=== PATIENT | female | born 1985 | race Caucasian/White ===

== ENCOUNTER 2016-11-05 16:36 | Emergency (ER) | payer OTHER ==
[2016-11-05 17:03] VITALS: BP 131/70; PULSE 72; RESP 18; TEMP 98.8
[2016-11-05] MEDS ORDERED: ACETAMINOPHEN TAB 325 MG TAB PO STA (17:37)
--- NOTE | 2016-11-05 17:53 | ED ---
Back Pain HPI - General Chief Complaint: Back Pain/Injury Stated Complaint: Back and hip pain Source: patient Limitations: no limitations - History of Present Illness Initial Comments: Patient is a 31 -year-old female with a medical history significant for degenerative disc disease and chronic low back pain presenting to the emergency department with chief complaint of low back pain and left hip pain. Patient states she was in her usual state of health when she woke up this morning developed back pain and left hip pain after she took a shower. Patient denies any injury or trauma. Patient describes pain as sharp, radiated 8 out of 10, exacerbated with movement, relieved with rest. Patient is 5 weeks and denies any treatment prior to arrival. No history of fevers, chills, nausea, vomiting, shortness of breath, chest pain, abdominal pain, vaginal bleeding, numbness or tingling. No urinary incontinence or fecal incontinence. No saddle anesthesia. - Related Data Home Medications Medication Instructions Recorded Confirmed No Known Home Medications [No 11/05/16 11/05/16 Known Home Medications] Allergies Allergy/AdvReac Type Severity Reaction Status Date / Time amoxicillin [Amoxicillin] Allergy Anaphylaxis Verified 11/05/16 17:12 cefaclor [From Ceclor] Allergy Anaphylaxis Verified 11/05/16 17:12 sulfamethoxazole Allergy Rash/Hives Verified 11/05/16 17:12 [From Bactrim] trimethoprim [From Bactrim] Allergy Rash/Hives Verified 11/05/16 17:12 Review of Systems ROS Statement: Those systems with pertinent positive or pertinent negative responses have been documented in the HPI. ROS Other: All systems not noted in ROS Statement are negative. Past Medical History Past Medical History: Asthma History of Any Multi-Drug Resistant Organisms: None Reported Past Surgical History: Tonsillectomy Past Psychological History: No Psychological Hx Reported, Anxiety Smoking Status: Current every day smoker Past Alcohol Use History: None Reported Past Drug Use History: None Reported General Exam Limitations: no limitations General appearance: alert, in no apparent distress Head exam: Present: atraumatic, normocephalic, normal inspection Eye exam: Present: normal appearance ENT exam: Present: normal exam, mucous membranes moist, normal external ear exam Neck exam: Present: normal inspection, full ROM. Absent: tenderness, meningismus, lymphadenopathy Respiratory exam: Present: normal lung sounds bilaterally. Absent: respiratory distress, wheezes, rales, rhonchi, stridor Cardiovascular Exam: Present: regular rate, normal rhythm, normal heart sounds. Absent: systolic murmur, diastolic murmur, rubs, gallop, clicks GI/Abdominal exam: Present: soft, rigid, normal bowel sounds. Absent: distended , tenderness, guarding, rebound Extremities exam: Present: normal inspection, full ROM Back exam: Present: full ROM, tenderness, paraspinal tenderness (Paraspinal tenderness over left lumbosacral region.), vertebral tenderness (Vertebral tenderness to lumbar region). Absent: muscle spasm Expanded Back exam: Absent: saddle anesthesia Back exam: Sciatic Notch Tenderness: Left Neurological exam: Present: alert, oriented X3, normal gait, other (No focal deficits noted) Psychiatric exam: Present: normal affect, normal mood Skin exam: Present: warm, dry, intact, normal color Course Vital Signs 11/05/16 16:59 Temperature 98.8 F Pulse Rate 72 Respiratory 18 Rate Blood Pressure 131/70 O2 Sat by Pulse 98 Oximetry Medical Decision Making - Medical Decision Making Acute on chronic back pain. No red flags present. No imaging performed secondary to patient being 5 weeks . Patient instructed to continue Tylenol as needed along with conservative measures for pain. Patient instructed to establish a primary care physician and follow-up. Patient instructed to follow-up with orthopedic services as needed for continued back pain. Patient agrees with treatment plan. Discharge instructions and return parameters reviewed. Disposition Clinical Impression: Acute exacerbation of chronic low back pain Disposition: HOME SELF-CARE Condition: Good Instructions: Acute Low Back Pain (ED), Chronic Back Pain (ED) Additional Instructions: Continue Tylenol for pain every 6 hours as needed. Apply ice or heat to back as needed for comfort. Establish primary care physician for follow-up. May consider follow-up with orthopedic service if symptoms do not improve. Please return to the emergency department if symptoms do not improve or get worse. Referrals: None,Stated [Primary Care Provider] - 1-2 days Jose Maria Benz MD [Medical Doctor] - 1-2 days Time of Disposition: 17:52
== END 2016-11-05 18:03 | disposition home or self-care (01) ==
LOC: EC 16:36
DX: O99.89 Other specified diseases and conditions complicating pregnancy, childbirth and the puerperium (principal); O99.331 Smoking (tobacco) complicating pregnancy, first trimester; G89.29 Other chronic pain; M54.5 Low back pain; M25.552 Pain in left hip; F17.200 Nicotine dependence, unspecified, uncomplicated; Z3A.01 Less than 8 weeks gestation of pregnancy; Z88.0 Allergy status to penicillin; Z88.1 Allergy status to other antibiotic agents; Z88.2 Allergy status to sulfonamides
CPT/HCPCS: 99283

== ENCOUNTER → 2016-12-31 | Outpatient (CLI) | payer OTHER ==
--- NOTE | 2016-12-31 12:50 | US ---
EXAMINATION TYPE: US OB <= 14 wk fetus DATE OF EXAM: 12/31/2016 COMPARISON: NONE CLINICAL HISTORY: Z36 Confirm dates. EXAM PERFORMED: Transabdominal (TA) EXAM MEASUREMENTS: GESTATIONAL AGE / DATING Physician Established: not yet established Dates by LMP: (12 weeks/5 days) EDC: 07/10/17 Dates by First Scan: 1st scan today Dates by Current Scan for: (12 weeks/3 days) EDC: 07/12/17 MATERNAL ANATOMY Uterus: 13.1 x 8.5 x 9.6cm Right Ovary: 4.4 x 2.7 x 3.2cm Left Ovary: 3.5 x 3.0 x 3.0cm Post CDS / Adnexa: wnl Presence of free fluid: no GESTATION / SURVEY CRL: 5.9cm (12 weeks/3 days) Yolk Sac (normal less than 6mm): not visualized Heart Rate: 170 bpm Rhythm: Normal IUP: Viable IUP Date of LMP: 10/03/16 Beta HcG (if available): not available Morbidly obese patient, technically difficult study. IMPRESSION: Single live intrauterine with a sonographic gestational age of 12 weeks and 3 days and yesica mated date of delivery of 07/12/2017. Dates are concordant with the menstrual age.
== END | disposition home or self-care (01) ==
LOC: RADUSWWP 12:03
PROVIDERS: ATTEND Obstetrics & Gynecology
DX: O99.211 Obesity complicating pregnancy, first trimester (principal); E66.01 Morbid (severe) obesity due to excess calories; R93.9 Diagnostic imaging inconclusive due to excess body fat of patient; Z3A.12 12 weeks gestation of pregnancy
CPT/HCPCS: 76801

== ENCOUNTER → 2017-02-23 | Outpatient (CLI) | payer OTHER ==
[2017-02-23 12:32] LABS: CH 33.2; CHCM 32.5; HCT 35.4 % (34.0-46.0); HDW 2.39; HGB 11.6 gm/dL (11.4-16.0); MCH 33.7 pg (25.0-35.0); MCHC 32.8 g/dL (31.0-37.0); MCV 102.6 fL (80.0-100.0); Macrocytosis Slight; RBC 3.45 m/uL (3.80-5.40); RDW 13.5 % (11.5-15.5)
[2017-02-23 12:41] LABS: Non-African American GFR(MDRD) >60 (>60 ml/min/1.73 sqM)
[2017-02-23 19:07] LABS: Treponemal Ab Non-Reactive (Non-Reactive)
[2017-02-24 06:32] LABS: Toxoplasma Antibody (IgG) <3.0 IU/mL (<7.2)
== END | disposition home or self-care (01) ==
LOC: LABWHC1 10:55
PROVIDERS: ATTEND Obstetrics & Gynecology
DX: O26.812 Pregnancy related exhaustion and fatigue, second trimester (principal); Z3A.00 Weeks of gestation of pregnancy not specified
CPT/HCPCS: 36415; 82565; 82950; 85027; 86762; 86777; 86778; 86780; 86850; 86900; 86901; 87340; 87390

== ENCOUNTER 2017-07-10 14:35 | Emergency (ER) | payer OTHER ==
--- NOTE | 2017-07-10 15:58 | XR ---
EXAMINATION TYPE: XR chest 2V DATE OF EXAM: 07/10/2017 COMPARISON: NONE HISTORY: Cough and congestion TECHNIQUE: Frontal and lateral views of the chest are obtained. FINDINGS: There is no focal air space opacity, pleural effusion, or pneumothorax seen. The cardiac silhouette size is within normal limits. The osseous structures are intact. IMPRESSION: No acute cardiopulmonary process.
--- NOTE | 2017-07-10 16:01 | ED ---
General Adult HPI - General Chief complaint: Upper Respiratory Infection Stated complaint: cough Time Seen by Provider: 07/10/17 15:19 Source: patient, RN notes reviewed Mode of arrival: ambulatory Limitations: no limitations - History of Present Illness Initial comments: 32 yo female presents to the ER with cc of cough and fever. Her child was recently diagnosed with influenza B and now she's developed a fever and cough. She states that she has not had any nausea vomiting. She's been able to eat and drink well. She was concerned due to the continued cough as well as a high fever so she thought that she should be seen. Patient denies any other symptoms at this time. She is a smoker. Denies any other health history. Patient denies any recent shortness of breath, chest pain, back pain, abdominal pain, nausea vomiting, numbness or tingling, dysuria or hematuria, constipation or diarrhea, headaches or visual changes, or any other current symptoms. - Related Data Home Medications Medication Instructions Recorded Confirmed Pnv No.95/Ferrous Fum/Folic AC 1 tab PO DAILY 06/15/17 07/10/17 [ Multivitamin Tablet] Acetaminophen [Tylenol Extra 1,000 mg PO Q6H PRN 07/10/17 07/10/17 Strength] Allergies Allergy/AdvReac Type Severity Reaction Status Date / Time amoxicillin [Amoxicillin] Allergy Anaphylaxis Verified 07/10/17 15:26 cefaclor [From Ceclor] Allergy Anaphylaxis Verified 07/10/17 15:26 sulfamethoxazole Allergy Rash/Hives Verified 07/10/17 15:26 [From Bactrim] trimethoprim [From Bactrim] Allergy Rash/Hives Verified 07/10/17 15:26 Review of Systems ROS Statement: Those systems with pertinent positive or pertinent negative responses have been documented in the HPI. ROS Other: All systems not noted in ROS Statement are negative. Past Medical History Past Medical History: Asthma Additional Past Medical History / Comment(s): OB history: First was a vaginal delivery at 35 weeks due to PROM, 6#2oz. This is her second and She has had care with me since 11 weeks. A+, abs neg, Rub Imm, Treponemal ab neg, Hep B neg, HIV NR. normal 1hr. Baby does have a 2 vessel cord and has been followed with growth USs and NSts. GBS neg. History of Any Multi-Drug Resistant Organisms: None Reported Past Surgical History: Tonsillectomy Past Anesthesia/Blood Transfusion Reactions: No Reported Reaction Past Psychological History: No Psychological Hx Reported, Anxiety Smoking Status: Current every day smoker Past Alcohol Use History: None Reported Past Drug Use History: None Reported - Past Family History Father Family Medical History: No Reported History General Exam - General Exam Comments Initial Comments: General exam: Alert, active, comfortable in no apparent distress Head: Normocephalic Eyes: Normal reaction of pupils, equal size, normal range of extraocular motion Ears: normal external ear canals, pink tympanic membranes with normal cone of light Nose: clear with pink turbinates Throat: no erythema or exudates with normal sized tonsils Neck: no masses, no nuchal rigidity Chest: no chest wall deformity Lungs: equal air entry with no crackles or wheeze CVS: S1 and S2 normal with no audible mumurs, regular rhythm Abdomen: no hepatosplenomegaly, normal bowel sounds, no guarding or rigidity Spine: no scoliosis or deformity Skin: no rashes Neurological: No focal deficits, tone is normal in all 4 extremities Limitations: no limitations Course Vital Signs 07/10/17 07/10/17 14:46 16:58 Temperature 98.0 F 98.1 F Pulse Rate 72 55 L Respiratory 17 18 Rate Blood Pressure 146/70 155/75 O2 Sat by Pulse 98 97 Oximetry Medical Decision Making - Medical Decision Making 32-year-old female presents for cough and fever. At this time patient is positive for influenza B. She is out of the window for treatment. At this time we will discharge the patient home. We discussed continuing Motrin Tylenol for fever. We discussed return parameters and follow-up and all questions. Patient family stated the [place] management this plan. All questions have been answered. They will be discharged at this time. - Lab Data Lab Results 07/10/17 Range/Units 15:30 Influenza Type A RNA Not Detected (Not Detectd) Influenza Type B (PCR) Detected H (Not Detectd) - Radiology Data Radiology results: report reviewed, image reviewed Disposition Clinical Impression: Influenza B Disposition: HOME SELF-CARE Condition: Stable Instructions: Influenza (ED) Additional Instructions: Please use medication as discussed. Please follow up with family doctor if symptoms have not improved over the next two days. Please return to the emergency room if your symptoms increase or worsen or for any other concerns. Referrals: Nohemi Lennon MD [REFERRING] - 1-2 days Time of Disposition: 17:16
[2017-07-10 16:59] VITALS: BP 155/75; PULSE 55; RESP 18; TEMP 98.1
== END 2017-07-10 17:36 | disposition home or self-care (01) ==
LOC: EC 14:35
DX: O99.53 Diseases of the respiratory system complicating the puerperium (principal); J10.1 Influenza due to other identified influenza virus with other respiratory manifestations; O99.335 Smoking (tobacco) complicating the puerperium; F17.200 Nicotine dependence, unspecified, uncomplicated; Z90.89 Acquired absence of other organs; Z88.0 Allergy status to penicillin; Z88.1 Allergy status to other antibiotic agents; Z79.899 Other long term (current) drug therapy
CPT/HCPCS: 71046; 87502; 99283

== ENCOUNTER → 2017-08-17 | Outpatient (CLI) | payer OTHER ==
[2017-08-17 15:08] LABS: Basophils % (A) 0 %; Eosinophils # (A) 0.2 k/uL (0-0.7); Eosinophils % (A) 2 %; HCT 38.8 % (34.0-46.0); HGB 12.6 gm/dL (11.4-16.0); Lymphocytes # (A) 2.3 k/uL (1.0-4.8); Lymphocytes % (A) 31 %; MCH 29.8 pg (25.0-35.0); MCHC 32.4 g/dL (31.0-37.0); Monocytes # (A) 0.3 k/uL (0-1.0); Monocytes % (A) 3 %; Neutrophils # (A) 4.7 k/uL (1.3-7.7); Neutrophils % (A) 62 %; Platelet Count 236 k/uL (150-450); RBC 4.22 m/uL (3.80-5.40); RDW 13.4 % (11.5-15.5); WBC 7.6 k/uL (3.8-10.6)
== END | disposition home or self-care (01) ==
LOC: LABPAT 14:40
PROVIDERS: ATTEND Obstetrics & Gynecology
DX: Z01.812 Encounter for preprocedural laboratory examination (principal)
CPT/HCPCS: 36415; 85025

== ENCOUNTER → 2017-10-21 | Outpatient (CLI) | payer OTHER ==
[2017-10-21 13:33] LABS: Basophils % (A) 0 %; Eosinophils # (A) 0.2 k/uL (0-0.7); Eosinophils % (A) 2 %; HCT 38.5 % (34.0-46.0); HGB 12.6 gm/dL (11.4-16.0); Lymphocytes % (A) 30 %; MCH 28.7 pg (25.0-35.0); MCHC 32.8 g/dL (31.0-37.0); MCV 87.4 fL (80.0-100.0); Mean Platelet Volume 6.7; Monocytes # (A) 0.3 k/uL (0-1.0); Monocytes % (A) 4 %; Neutrophils # (A) 4.3 k/uL (1.3-7.7); Neutrophils % (A) 63 %; Platelet Count 193 k/uL (150-450); RDW 14.7 % (11.5-15.5); WBC 6.8 k/uL (3.8-10.6)
== END | disposition home or self-care (01) ==
LOC: LABPAT 12:56
PROVIDERS: ATTEND Obstetrics & Gynecology
DX: Z01.812 Encounter for preprocedural laboratory examination (principal)
CPT/HCPCS: 36415; 85025

== ENCOUNTER 2017-10-28 05:57 | Day surgery (SDC) | payer OTHER ==
[2017-10-24 15:08] VITALS: BMI 48.0
[~2017-10-28 05:57] MED LIST: DEXAMETHASONE SOD PHOSPHATE 10 MG/ML 1 ML VIAL IV ONE; LACTATED RINGERS 1,000 ML IV SCH; MIDAZOLAM 2 MG/2 ML VIAL IV PRN; ONDANSETRON 4 MG/2 ML VIAL IVP ONE; Pre Op ABX Message 1 EACH MISC MISCELLANE ONE; SCOPOLAMINE 1.5MG/72HR PATCH TRANSDERM ONE; fentaNYL (PF) 50 MCG/ML 2 ML AMP IV PRN
--- NOTE | 2017-10-28 06:33 | P.HPOB ---
History of Present Illness H&P Date: 10/28/17 Chief Complaint: Family planning 32-year-old presents for laparoscopic tubal ligation. Review of Systems All systems: negative Constitutional: Denies chills, Denies fever Eyes: denies blurred vision, denies pain Ears, nose, mouth and throat: Denies headache, Denies sore throat Cardiovascular: Denies chest pain, Denies shortness of breath Respiratory: Denies cough Gastrointestinal: Denies abdominal pain, Denies diarrhea, Denies nausea, Denies vomiting Genitourinary: Denies dysuria, Denies hematuria Musculoskeletal: Denies myalgias Integumentary: Denies pruritus, Denies rash Neurological: Denies numbness, Denies weakness Psychiatric: Denies anxiety, Denies depression Endocrine: Denies fatigue, Denies weight change Past Medical History Past Medical History: Asthma Additional Past Medical History / Comment(s): ASTHMA (NO MEDS SINCE 18 YRS OLD) , VARICOSE VEINS, SCIATIC NERVE PAIN. History of Any Multi-Drug Resistant Organisms: None Reported Past Surgical History: Tonsillectomy Past Anesthesia/Blood Transfusion Reactions: No Reported Reaction, Motion Sickness Past Psychological History: Anxiety Smoking Status: Current every day smoker Past Alcohol Use History: None Reported Additional Past Alcohol Use History / Comment(s): STARTED SMOKING AGE 19., SMOKES 1/2 PPD. Past Drug Use History: None Reported - Past Family History Father Family Medical History: No Reported History Medications and Allergies Home Medications Medication Instructions Recorded Confirmed Type Ibuprofen 800 mg PO TID PRN 10/24/17 10/24/17 History Allergies Allergy/AdvReac Type Severity Reaction Status Date / Time amoxicillin [Amoxicillin] Allergy Anaphylaxis Verified 10/24/17 14:49 cefaclor [From Ceclor] Allergy Anaphylaxis Verified 10/24/17 14:49 latex Allergy Rash/Hives Verified 10/24/17 14:49 sulfamethoxazole Allergy Rash/Hives Verified 10/24/17 14:49 [From Bactrim] trimethoprim [From Bactrim] Allergy Rash/Hives Verified 10/24/17 14:49 Exam Osteopathic Statement: *. No significant issues noted on an osteopathic structural exam other than those noted in the History and Physical/Consult. Heart: Regular rate and rhythm Lungs: Clear to auscultation bilaterally Abdomen: Soft, nontender Extremities: Negative Homans sign Assessment and Plan (1) Family planning Current Visit: No Status: Acute Code(s): Z30.09 - ENCOUNTER FOR OTH GENERAL CNSL AND ADVICE ON CONTRACEPTION SNOMED Code(s): 148103832 Plan: 1. Laparoscopic tubal ligation
[2017-10-28] MEDS ORDERED: LIDOCAINE 1% 20 ML VIAL (10MG/ML) FOR IV START INTRADERMA ONE (06:54)
[2017-10-28] MEDS ORDERED: PROPOFOL 10 MG/ML 20 ML VIAL IV ONE (07:59)
[2017-10-28] MEDS ORDERED: fentaNYL (PF) 50 MCG/ML 2 ML AMP ONE (07:59)
[2017-10-28] MEDS ORDERED: HYDROmorphone (PF) 1 MG/ML ONE (07:59)
[2017-10-28] MEDS ORDERED: GLYCOPYRROLATE 0.2 MG/ML 2 ML VIAL ONE (07:59)
[2017-10-28] MEDS ORDERED: KETOROLAC 30 MG/ML 1 ML VIAL ONE (07:59)
[2017-10-28] MEDS ORDERED: LIDOCAINE 1% INJ 10MG/ML (20 ML MDV) ONE (07:59)
[2017-10-28] MEDS ORDERED: SUCCINYLCHOLINE CHLORIDE 100 MG/5 ML SYR IV ONE (07:59)
[2017-10-28] MEDS ORDERED: MIDAZOLAM 2 MG/2 ML VIAL ONE (07:59)
[2017-10-28] MEDS ORDERED: LIDOCAINE 1% (PF) 10MG/ML VIAL SQ ONE ×2 (08:29→08:49)
--- NOTE | 2017-10-28 08:56 | P.OP ---
Date of Procedure: 10/28/17 Preoperative Diagnosis: family planning Postoperative Diagnosis: family planning, extensive pelvic adhesions Procedure(s) Performed: laparoscopic tubal ligation, lysis of adhesions Anesthesia: ALEXA Surgeon: Shantel Thompson Estimated Blood Loss (ml): 3 IV fluids (ml): 850 Urine output (ml): 15 Pathology: none sent Condition: stable Disposition: PACU Operative Findings: the left tube and ovary are adheared to the anterior pelvic wall. there were also some omental adhesions here. Description of Procedure: Patient was taken to the operating room where general anesthesia was obtained without difficulty. She was prepped and draped in normal sterile fashion in the dorsal lithotomy position, legs placed in the Obed stirrups. Bladder drained of all urine. [place] speculum placed in the vagina and the anterior lip the cervix was grasped with single-tooth tenaculum. The uterus is sounded to 10 cm and the kroner manipulator was placed. Attention was then turned to the abdomen and gloves were changed. A 10 mm infraumbilical incision was made the scalpel and 10 mm optical trocar was placed under direct visualization. A 5 mm suprapubic Incision was made and a 5 mm optical trocar was placed under direct visualization. Survey of the pelvis revealed extensive omental adhesions to the anterior pelvic wall, the left adnexa is also adhered to the anterior pelvic wall. The omental adhesions were taken down in a blunt manner using a probe. Field the omental adhesions were also taken down using the laparoscopic Metzenbaums. The left adnexa was stuck so well to the anterior wall that it was felt that it was best to leave this where it was so as not to cause further damage to other organs. The left fallopian tube was grasped with a Kleppinger and fulgurated 2-3 cm on this side in the ampullar portion. The right fallopian tube was grasped with a Kleppinger and fulgurated 2-3 cm in the ampullar portion. All instruments were then removed from the abdomen and vagina. The 10 mm infraumbilical incision was closed with 0 Vicryl and the fascial layer and then 4-0 Vicryl in a subcuticular fashion. The 5 mm incision was closed with 4-0 Vicryl in a subcuticular fashion. Patient tolerated procedure well, sponge and instrument counts correct 2 and she was taken to recovery room in stable condition.
[2017-10-28 09:07] VITALS: TEMP 98
[2017-10-28] MEDS ORDERED: HYDROmorphone 1 MG/ML 1 ML SYRINGE IVP ONE ×2 (09:16→09:34)
[2017-10-28 09:48] VITALS: RESP 16
[2017-10-28 10:25] VITALS: BP 151/66; PULSE 59
== END 2017-10-28 10:55 | disposition home or self-care (01) ==
LOC: OR 05:57
PROVIDERS: ATTEND Obstetrics & Gynecology
DX: Z30.2 Encounter for sterilization (principal); J45.909 Unspecified asthma, uncomplicated; F41.9 Anxiety disorder, unspecified; N73.6 Female pelvic peritoneal adhesions (postinfective); M54.16 Radiculopathy, lumbar region; F17.210 Nicotine dependence, cigarettes, uncomplicated; Z88.0 Allergy status to penicillin; Z88.8 Allergy status to other drugs, medicaments and biological substances; Z88.2 Allergy status to sulfonamides; Z91.040 Latex allergy status
CPT/HCPCS: 81025; 49329; 58670; J2250; J1100; J2405; J2001 ×2; J3010; J1885; J1170; J0330; J2704

== ENCOUNTER 2018-09-25 15:41 | Emergency (ER) | payer OTHER ==
[2018-09-25 15:50] VITALS: BP 152/79; PULSE 67; RESP 20; TEMP 98.3
[2018-09-25] MEDS ORDERED: HYDROcodone/APAP 7.5-325MG 1 EACH TAB PO ONE (15:58)
[2018-09-25] MEDS ORDERED: CYCLOBENZAPRINE 10 MG TAB PO STA (15:59)
[2018-09-25] MEDS ORDERED: KETOROLAC 60 MG/2 ML VIAL IM STA (15:59)
--- NOTE | 2018-09-25 16:06 | ED ---
Back Pain HPI - General Chief Complaint: Back Pain/Injury Stated Complaint: Back pain Time Seen by Provider: 09/25/18 15:51 Source: patient, RN notes reviewed Limitations: no limitations - History of Present Illness Initial Comments: 33-year-old female presents emergency Department with chief complaint of low back pain. Patient's had pain for last 2 days worse with movement. Patient states when she leans to the right it does improve her symptoms. Patient has pain that radiates down into her left leg denies any bowel bladder incontinence or retention. Denies any saddle anesthesias no lower extremity paresthesias. Patient states she's had a history of back from summer this. Patient states that she's had some relief with Motrin but not completely. Patient denies any fevers, chills, dysuria, abdominal pain, flank pain, headache and dizziness. - Related Data Home Medications Medication Instructions Recorded Confirmed Ibuprofen 800 mg PO TID PRN 10/24/17 10/28/17 Previous Rx's Medication Instructions Recorded Acetaminophen-Codeine 300-30mg 1 - 2 tab PO Q6H PRN #24 tablet 10/28/17 [Tylenol #3] Ibuprofen [Motrin] 600 mg PO Q6HR PRN #30 tab 10/28/17 Cyclobenzaprine [Flexeril] 10 mg PO TID PRN #15 tab 09/25/18 Hydrocodone/Acetaminophen [[place] 1 tab PO Q6HR PRN #12 tab 09/25/18 5-325] Ibuprofen [Motrin] 800 mg PO Q6HR #30 tab 09/25/18 predniSONE 50 mg PO DAILY #5 tab 09/25/18 Allergies Allergy/AdvReac Type Severity Reaction Status Date / Time amoxicillin [Amoxicillin] Allergy Anaphylaxis Verified 09/25/18 15:50 cefaclor [From Ceclor] Allergy Anaphylaxis Verified 09/25/18 15:50 latex Allergy Rash/Hives Verified 09/25/18 15:50 sulfamethoxazole Allergy Rash/Hives Verified 09/25/18 15:50 [From Bactrim] trimethoprim [From Bactrim] Allergy Rash/Hives Verified 09/25/18 15:50 Review of Systems ROS Statement: Those systems with pertinent positive or pertinent negative responses have been documented in the HPI. ROS Other: All systems not noted in ROS Statement are negative. Past Medical History Past Medical History: Asthma Additional Past Medical History / Comment(s): OB history: First was a vaginal delivery at 35 weeks due to PROM, 6#2oz. This is her second and She has had care with me since 11 weeks. A+, abs neg, Rub Imm, Treponemal ab neg, Hep B neg, HIV NR. normal 1hr. Baby does have a 2 vessel cord and has been followed with growth USs and NSts. GBS neg. History of Any Multi-Drug Resistant Organisms: None Reported Past Surgical History: Tonsillectomy, Tubal Ligation Past Anesthesia/Blood Transfusion Reactions: No Reported Reaction Past Psychological History: Anxiety Smoking Status: Current every day smoker Past Alcohol Use History: None Reported Past Drug Use History: None Reported - Past Family History Father Family Medical History: No Reported History General Exam Limitations: no limitations General appearance: alert, in no apparent distress Head exam: Present: atraumatic, normocephalic, normal inspection Neck exam: Present: normal inspection, full ROM. Absent: tenderness, meningismus, lymphadenopathy Respiratory exam: Present: normal lung sounds bilaterally. Absent: respiratory distress, wheezes, rales, rhonchi, stridor Cardiovascular Exam: Present: regular rate, normal rhythm, normal heart sounds. Absent: systolic murmur, diastolic murmur, rubs, gallop, clicks GI/Abdominal exam: Present: soft, normal bowel sounds. Absent: distended, tenderness, guarding, rebound, rigid Extremities exam: Present: other (Lower extremity pulses equal bilaterally, equal color equal warmth of lower extremities, full range of motion pain with left straight leg raise) Back exam: Present: full ROM (Moderate discomfort), tenderness, muscle spasm, paraspinal tenderness (Left lumbar). Absent: CVA tenderness (R), CVA tenderness (L), vertebral tenderness Neurological exam: Present: alert, oriented X3, CN II-XII intact, reflexes normal. Absent: motor sensory deficit Skin exam: Present: warm, dry, intact, normal color. Absent: rash Course Vital Signs 09/25/18 15:46 Temperature 98.3 F Pulse Rate 67 Respiratory 20 Rate Blood Pressure 152/79 O2 Sat by Pulse 99 Oximetry Medical Decision Making - Medical Decision Making 33-year-old female presented for low back pain. Patient has symptoms consistent with lumbar region. Patient has had x-rays in the past which showed degenerative changes. Patient has no red flag symptoms. Patient will be discharged return parameters were discussed. Disposition Clinical Impression: Lumbar radiculopathy Disposition: HOME SELF-CARE Condition: Stable Instructions (If sedation given, give patient instructions): Acute Low Back Pain (ED) Additional Instructions: Please return to the Emergency Department if symptoms worsen or any other concerns. Prescriptions: Cyclobenzaprine [Flexeril] 10 mg PO TID PRN #15 tab PRN Reason: Muscle Spasm Ibuprofen [Motrin] 800 mg PO Q6HR #30 tab Hydrocodone/Acetaminophen [[place] 5-325] 1 tab PO Q6HR PRN #12 tab PRN Reason: Pain predniSONE 50 mg PO DAILY #5 tab Is patient prescribed a controlled substance at d/c from ED?: Yes When asked, does pt state using other controlled substances?: No If prescribed controlled substance>3 days was MAPS reviewed?: Prescribed <3 Days If opioid is for acute pain is fill amount 7 days or less?: Yes If Rx opioid, was Start Talking consent form obtained?: Yes Referrals: Maryam Lizama MD [STAFF PHYSICIAN] - 1-2 days Neeru Wolf DO [Doctor of Osteopathic Medicine] - 1-2 days Time of Disposition: 16:05
== END 2018-09-25 16:33 | disposition home or self-care (01) ==
LOC: EC 15:41
DX: M54.16 Radiculopathy, lumbar region (principal); F17.200 Nicotine dependence, unspecified, uncomplicated; Z88.1 Allergy status to other antibiotic agents; Z88.0 Allergy status to penicillin; Z88.2 Allergy status to sulfonamides; Z91.040 Latex allergy status
CPT/HCPCS: 99283; 96372; J1885

== ENCOUNTER → 2023-06-14 | Outpatient (CLI) | payer OTHER ==
--- NOTE | 2023-06-14 14:42 | MR ---
EXAMINATION TYPE: MR sacroiliac joints wo con DATE OF EXAM: 06/14/2023 COMPARISON: None HISTORY: Sacroilitis Standard multiplanar, multisequence MRI departmental protocol Multiplanar, multisequence images of the sacroiliac joints were acquired without contrast. Diffusion weighted imaging was performed. FINDINGS: There is increased signal noted along the sacral margin of the sacroiliac joint and to a lesser exten t the lower margin of the ilium along the sacroiliac joint. Findings are compatible with sacroiliitis possibly inflammatory in nature. There is mild narrowing of the sacroiliac joints seen caudally. No fracture or bony lesion. No soft tissue mass. Presacral soft tissues are within normal limits. IMPRESSION: Correlate for nonspecific bilateral sacroiliitis.
== END | disposition home or self-care (01) ==
LOC: RADMRIMAIN 10:21
PROVIDERS: ATTEND Internal Medicine Rheumatology
DX: M46.1 Sacroiliitis, not elsewhere classified (principal)
CPT/HCPCS: 72195